=== PATIENT | female | born 1965 | race Caucasian/White ===

== ENCOUNTER → 2020-03-10 | Outpatient (CLI) | payer OTHER | LOC: HEART 5 13:18 | DX: I49.3 Ventricular premature depolarization (principal); R00.2 Palpitations ==

== ENCOUNTER → 2021-04-19 | Outpatient (CLI) | payer OTHER | LOC: KOH-I 15:01 | DX: M79.671 Pain in right foot (principal); M77.31 Calcaneal spur, right foot | CPT/HCPCS: 73630 ==

== ENCOUNTER → 2021-06-29 | Outpatient (CLI) | payer OTHER | LOC: KOH-I 13:51 | DX: M79.671 Pain in right foot (principal); M25.571 Pain in right ankle and joints of right foot; M19.071 Primary osteoarthritis, right ankle and foot | CPT/HCPCS: 73610; 73630 ==

== ENCOUNTER → 2021-09-20 | Outpatient (CLI) | payer OTHER | LOC: EMI 09-15 14:30 | DX: M25.571 Pain in right ankle and joints of right foot (principal); M25.471 Effusion, right ankle; S93.421A Sprain of deltoid ligament of right ankle, initial encounter; X58.XXXA Exposure to other specified factors, initial encounter; R93.6 Abnormal findings on diagnostic imaging of limbs | CPT/HCPCS: 73721 ==